=== PATIENT | male | born 1990 | race Caucasian/White ===

== ENCOUNTER 2021-10-08 17:12 | Emergency (ER) | payer OTHER, SELFPAY ==
[2021-10-08 17:24] VITALS: BP 148/86; PULSE 109; RESP 16; TEMP 36.3; O2SAT 97
--- NOTE | 2021-10-08 17:50 | ED.URI ---
HPI - URI/Sore Throat General Chief Complaint: Upper Respiratory Infection Stated Complaint: sinus issues Time Seen by Provider: 10/08/21 17:40 Source: patient and RN notes reviewed Mode of arrival: ambulatory Limitations: no limitations History of Present Illness HPI Narrative: Patient presents today with an 8-day history of bilateral ear clogging, headache, nasal congestion, postnasal drip, sinus pressure, crustiness in his eyes. Denies fever, cough, sore throat. Reports multiple sick contacts, but with nothing specific. He has been using TheraFlu without relief. No recent antibiotic use. MD elicited complaint: nasal congestion Related Data Home Medications Medication Instructions Recorded Confirmed allopurinol 10/08/21 Allergies Allergy/AdvReac Type Severity Reaction Status Date / Time No Known Allergies Allergy Unverified 01/06/18 18:58 Review of Systems Review of Systems: CONSTITUTIONAL: Denies body aches, fever, chills, or sweats. EYES: Denies visual changes, redness, or discharge.+ Eye crusting ENT: Denies rhinorrhea,sore throat. + Congestion, sinus pressure, postnasal drip, ear clogging CARDIOVASCULAR: Denies chest pain, palpitations, or edema. RESPIRATORY: Denies cough or dyspnea. GASTROINTESTINAL: Denies abdominal pain, nausea, vomiting, or diarrhea. GENITOURINARY: Denies dysuria or hematuria. SKIN: Denies rash, itching, or wounds. MUSCULOSKELETAL: Denies back pain, joint pain, or myalgia. NEUROLOGIC: Denies numbness, tingling, or weakness.+ Headache PSYCH: Denies depression or anxiety. PMFSH Comments At time of signature, I have reviewed and agree with nursing past medical, surgical, social and family history unless otherwise noted. Please see nursing chart for further information. There is no relevant family history pertinent to the presenting complaint Exam Narrative: GENERAL: Well-appearing, well-nourished, and in no acute distress. HEAD: Normocephalic, atraumatic. EYES: EOMI. No redness or drainage. Conjunctivae normal. ENT: Mucous membranes pink and moist. Nares congested. Bilateral erythematous nasal turbinates. Purulent discharge on the left. Bilateral frontal sinus tenderness. No maxillary sinus tenderness. No rhinorrhea. Bilateral deep cerumen impactions. Unable to visualize either TM. Throat normal. Uvula midline. NECK: Normal AROM. Supple. Tender anterior cervical lymph nodes. CHEST: No respiratory distress. Clear to auscultation. HEART: Regular rate and rhythm. No murmur appreciated. Normal peripheral pulses. EXTREMITIES: Normal range of motion. No edema. SKIN: Warm, dry, no rash. Capillary refill normal. Normal skin turgor. NEURO: No focal deficits. Alert and oriented x3. Gait steady. PSYCH: Normal affect. No signs of depression or anxiety. Course Vital Signs Vital signs: Vital Signs Temperature 97.4 F L 10/08/21 17:24 Pulse Rate 109 H 10/08/21 17:24 Respiratory Rate 16 10/08/21 17:24 Blood Pressure 148/86 H 10/08/21 17:24 Pulse Oximetry 97 10/08/21 17:24 Temperature 97.4 F L 10/08/21 17:24 Pulse Rate 109 H 10/08/21 17:24 Respiratory Rate 16 10/08/21 17:24 Blood Pressure 148/86 H 10/08/21 17:24 Pulse Oximetry 97 10/08/21 17:24 Reviewed. Pt has been instructed to follow up with his PCP regarding his elevated blood pressure today. MDM - URI/Sore Throat Differential Diagnosis Differential diagnosis: Likely upper respiratory infection, otitis media, sinusitis, viral infection and pharyngitis Critical Care Time Critical Care Time Critical Care Time: No Discharge Plan Discharge Clinical Impression: Bilateral impacted cerumen Sinusitis Qualifiers: Sinusitis location: frontal Chronicity: acute Recurrence: non-recurrent Qualified Code(s): J01.10 - Acute frontal sinusitis, unspecified Patient Disposition: Home, Self-Care Condition: Stable Instructions: Antibiotic Form, Sinusitis (ED) Additional Instructions: Take
== END 2021-10-08 18:03 | disposition home or self-care (01) ==
PROVIDERS: Emergency Provider Nurse Practitioner
DX: H61.23 Impacted cerumen, bilateral (principal); J01.10 Acute frontal sinusitis, unspecified
CPT/HCPCS: 99203; G0463

== ENCOUNTER 2022-03-24 11:39 | Emergency (ER) | payer OTHER, SELFPAY ==
[2022-03-24 11:45] VITALS: BP 157/85; PULSE 104; RESP 20; TEMP 36.8; O2SAT 97
--- NOTE | 2022-03-24 11:47 | ED.WOUNDLAC ---
HPI - Wound/Laceration General Chief Complaint: Wound/Laceration Stated Complaint: cami in right leg removed Source: patient Mode of arrival: ambulatory Limitations: no limitations History of Present Illness HPI narrative: 32 y/o male presented for staple removal from right leg wound that occurred 03/07/22. The injury took place at the [facility] where he slipped on a rock bending the right toes back, resulting in the laceration. Cami placed and at the time his tetanus was updated, and he was given Rx clindamycin. Denies significant pain, drainage, fever, numbness, tingling or weakness of the extremity. Endorses gout flare to right great toe since the injury, was taking indomethacin but has been done for one week, and is requesting refill. Related Data Home Medications Medication Instructions Recorded Confirmed allopurinol 100 mg tablet 10/08/21 indomethacin 25 mg capsule cap 03/24/22 Allergies Allergy/AdvReac Type Severity Reaction Status Date / Time No Known Allergies Allergy Unverified 01/06/18 18:58 Review of Systems Review of Systems: CONSTITUTIONAL: Denies body aches, fever, chills, or sweats. CARDIOVASCULAR: Denies chest pain, palpitations, or edema. RESPIRATORY: Denies cough or dyspnea. GASTROINTESTINAL: Denies abdominal pain, nausea, vomiting, or diarrhea. SKIN: Right leg wound with cami MUSCULOSKELETAL: Denies back pain, joint pain, or myalgia. NEUROLOGIC: Denies headache, numbness, tingling, or weakness. PMFSH Comments At time of signature, I have reviewed and agree with nursing past medical, surgical, social and family history unless otherwise noted. Please see nursing chart for further information. There is no relevant family history pertinent to the presenting complaint Exam Narrative: GENERAL: Well-appearing EYES: conjunctivae clear, and EOMI. ENT: Mucous membranes moist. NECK: Supple. No lymphadenopathy CHEST: Clear to auscultation. No respiratory distress. HEART: Regular rate and rhythm. SKIN: Warm, dry. Right lower leg with laceration approx 11cm healing/scabbed, 11 cami intact; scant amount serosanguineous drainage, mild surrounding induration approx 4cm, nontender, no purulence MUSC: Right great toe with mild swelling at MTP, redness and discoloration, tender with palpation NEURO: Alert and oriented x3. PSYCH: Normal mood and affect Course Course Emergency Course: Patient is aware of diagnosis, understands and agrees to treatment plan. Anticipatory guidance given. Patient agrees to follow-up as directed and is aware of reasons to seek care at the emergency department. Portions of this record may have been created with voice recognition software Level of Care: Express Care Visit Vital Signs Vital signs: Reviewed Procedures Other Procedure Procedure 1: Other Procedure: 11 cami removed from right lower leg laceration without difficulty MDM - Wound/Laceration MDM Narrative Medical decision making narrative: Cami removed, site is red/warm; will give one course of Keflex. Also with right great toe swelling c/w gout, he states indomethacin works best for him, will give one week Rx. He is advised to f/u with PCP. v/u. Differential Diagnosis Differential diagnosis: Likely laceration, abscess and abrasion Discharge Plan Discharge Clinical Impression: Encounter for removal of cami Gout Qualifiers: Gout site: toe Gout etiology: unspecified cause Chronicity: acute Laterality: right Qualified Code(s): M10.9 - Gout, unspecified Patient Disposition: Home, Self-Care Condition: Stable Instructions: Antibiotic Form, Laceration (ED), Gout (ED) Additional Instructions: Keep the area clean and dry - cleanse with warm water and mild soap and allow to fully dry. Ok to apply neosporin to the site Keep it open to air (no bandages), unless at risk for contamination Take the antibiotic as directed Watch for worsening symptoms including pain, redness,
== END 2022-03-24 12:16 | disposition home or self-care (01) ==
PROVIDERS: Emergency Provider Nurse Practitioner Family
DX: S81.811D Laceration without foreign body, right lower leg, subsequent encounter (principal); X58.XXXD Exposure to other specified factors, subsequent encounter; M10.9 Gout, unspecified; I10 Essential (primary) hypertension
CPT/HCPCS: 99211; G0463